=== PATIENT | female | born 1955 | race Caucasian/White ===

== ENCOUNTER 2020-07-25 17:42 | Emergency (ER) | payer OTHER, SELFPAY ==
[2020-07-25] VITALS (11 sets, daily range): BP systolic 112–165; BP diastolic 57–95; PULSE 84–112; RESP 15–24; TEMP 36.6; O2SAT 91–96; BMI 48.4
--- NOTE | 2020-07-25 18:38 | ECG_ITS ---
[facility] Test Date: 2020-07-25 Pat Name: Zakia Medellin Department: Room: Gender: Female Contract Consultant: : 1955 Requested By: Anthony Wilson Order Number: [id number] Tipton MD: Vargas Castro M.D. Measurements Intervals [place] Rate: 107 P: AL: QRS: -10 QRSD: 102 T: 6 QT: 333 QTc: 444 Interpretive Statements ATRIAL FIBRILLATION WITH RAPID VENTRICULAR RESPONSE INCOMPLETE RIGHT BUNDLE BRANCH BLOCK [90+ ms QRS DURATION, TERMINAL R IN V1/V2, 40+ ms S IN I/aVL/V4/V5/V6] NONSPECIFIC ST & T-WAVE ABNORMALITY No previous ECG available for comparison Electronically Signed On 07-26-2020 17:53:45 WELLNESS TRAINER by Vargas Castro M.D. [id number]
--- NOTE | 2020-07-25 18:38 | XRR_ITS ---
PROCEDURE INFORMATION: Exam: XR Chest, 1 View Exam date and time: 07/25/2020 6:40 PM Age: 64 years old Clinical indication: Dyspnea; Additional info: SOB TECHNIQUE: Imaging protocol: XR of the chest Views: 1 view. COMPARISON: No relevant prior studies available. FINDINGS: Lungs: Ill-defined peripheral interstitial opacities in both upper and lower lobes. Pleural space: No pleural effusion. No pneumothorax. Heart/Mediastinum: The cardiac silhouette is mildly enlarged. Mediastinal contours are unremarkable. Vasculature: Vascular calcifications in the aorta. Bones/joints: Unremarkable for age. XR/XR chest 1V portable [id number] IMPRESSION: 1. Ill-defined peripheral interstitial opacities in both upper and lower lobes. Imaging features can be seen with COVID-19 pneumonia, though are nonspecific and can occur with a variety of infectious and noninfectious processes. 2. Incidental/nonacute findings are listed in the report.
[2020-07-25] MEDS: ipratropium-albuterol 3 mL Neb INHALATION (18:58)
[2020-07-25 19:40] LABS: Basophils % 0.3 %; Hematocrit 41.2 % (37.0-47.0); Hemoglobin 13.1 g/dL (11.5-15.3); Lymphocytes # 1.2 10^3/uL (0.8-4.8); Lymphocytes % 16.6 %; Mean Corpuscular HGB Conc 31.8 g/dL (30.0-36.0); Mean Corpuscular Hemoglobin 27.6 pg (28.0-34.0); Mean Corpuscular Volume 86.7 fL (81-99); Monocytes # 0.5 10^3/uL (0.2-0.9); Monocytes % 6.7 %; Neutrophils # 5.68 10^3/uL (1.8-7.7); Neutrophils % 75.9 %; Nucleated Red Blood Cells % 0 %; Platelet Count 238 10^3/cmm (130-400); Red Blood Count 4.75 10^6/uL (4.1-5.3); Red Cell Distribution Width 11.9 % (12.1-15.1); White Blood Count 7.5 10^3/uL (4.0-10.0)
[2020-07-25 19:57] LABS: Lactic Sepsis W/Reflex 1.2 mmol/L (0.5-2.2)
[2020-07-25 20:06] LABS: Alanine Aminotransferase 24 U/L (0-33); Albumin Level 3.4 g/dL (3.5-5.2); Alkaline Phosphatase 96 IU/L (35-105); Anion Gap 15.9 (5-19); Aspartate Amino Transferase 23 U/L (0-32); Blood Urea Nitrogen 11 mg/dL (8-23); Calcium 8.7 mg/dL (8.5-10.5); Carbon Dioxide 24 mmol/L (22-29); Chloride 99 mmol/L (98-107); Glomerular Filtration Rate 124.6 mL/min (90-130); Glucose 166 mg/dL (65-115); NT Pro B Type Natriuretic Pept 474 pg/mL (0-125); Osmolality Calculated 283 mOsm/kg (285-295); Potassium 3.9 mmol/L (3.5-5.1); Sodium 135 mmol/L (136-145); Total Bilirubin 0.6 mg/dL (0.15-1.2); Total Protein 6.4 g/dL (6.6-8.7)
[2020-07-25] MEDS: sodium chloride 0.9% 500 ML 999 ML IV (20:10)
[2020-07-25] MEDS: LORazepam 1 mg Tablet PO (20:20)
--- NOTE | 2020-07-25 20:29 | W.ED.SOB ---
HPI - SOB/Dyspnea General: Chief Complaint: Shortness of Breath/Dyspnea Stated Complaint: sob/d/low o2 Time Seen by Provider: 07/25/20 17:49 Source: patient and family History of Present Illness: HPI Narrative: 64-year-old female post Covid guided quarantine on July 20, 2020 presents to the emergency room persistent shortness of breath and difficulty breathing. Per the daughter the patient is prone to getting allergic pneumonitis as well as pneumonia. The patient does report having a known history of lung issues including COPD. Patient has a known history of atrial fibrillation and cardiac issues she reports no recent chest pain or pressure reports intermittent episodes of A. fib that is normal for her she reports no recent swelling in her legs in which she was reporting no other associated symptoms. Pertinent past history: COPD Associated symptoms: Deny abdominal pain, chest pain, extremity pain, fever(s), nausea, palpitations or vomiting Related Data: Home oxygen amount: none Review of Systems General: Reports: 10 or more systems reviewed and unremarkable except in HPI and below Const: Denies: fever(s), chills, fatigue or malaise Eyes: Denies: change in vision or blurry vision Card: Reports: irregular heart rhythm; Denies: chest pain or palpitations Resp: Reports: dyspnea and productive cough; Denies: non-productive cough GI: Denies: abdominal pain, nausea or vomiting : Denies: flank pain Musc: Denies: extremity pain or extremity swelling Skin/Breast: Denies: rash or pruritus Neuro: Denies: headache(s) Psych: Denies: anxiety or depression Fritz/Lymph: Denies: easy bleeding All/Imm: Denies: urticaria, throat swelling or facial swelling Physical Exam Narrative: EXAM NARRATIVE: On assessment patient appears in no acute respiratory distress diminished breath sounds appreciated bilaterally with no wheezing crackles rales or rhonchi noted. Patient appears nontoxic Const: COMMON NORMALS: no acute distress and patient oriented x3 HENMT: COMMON NORMALS: normocephalic and atraumatic HEAD & SCALP: normocephalic and atraumatic Eye: COMMON NORMALS: Equal, round and reactive pupils present and EOMs intact bilaterally PUPIL: Yes Equal, round and reactive pupils present Neck/C-Spine: COMMON NORMALS: full ROM, supple and no JVD Lymph: LYMPHATIC: no lymphadenopathy noted Chest: COMMONS NORMALS: normal inspection of the chest Resp: COMMON NORMALS: normal respiratory effort, No retractions, No use of accessory muscles and clear to auscultation bilaterally EFFORT & INSPECTION: Yes able to speak in complete sentences and Yes symmetric chest movement AUSCULTATION: clear to auscultation bilaterally, wheezes and diminished lung sounds (Diminished breath sounds appreciated bilaterally with mild skin expiratory ) Cardio: COMMON NORMALS: no JVD, regular rate and regular rhythm RATE: regular rate RHYTHM: regular rhythm GI: COMMON NORMALS: Normal to inspection, nondistended, normoactive bowel sounds present, Soft to palpation and non-tender INSPECTION: Yes normal to inspection PALPATION: Yes Soft to palpation : COMMON NORMALS: Yes no CVA tenderness BLADDER/KIDNEY EXAM: Yes no CVA tenderness Back/Pelvis: COMMON NORMALS: no CVA tenderness Extremity: COMMON NORMALS: normal to inspection and full ROM Neuro: COMMON NORMALS: patient oriented x3, CN's II-XII intact bilaterally, moves all extremities and no focal motor deficits Psych: COMMON NORMALS: mental status grossly normal, Normal thought process present, cooperative and normal affect THOUGHT PROCESS: Normal thought process present Skin: COMMON NORMALS: no rashes or lesions noted GENERAL SKIN EXAM: no rashes or lesions noted Course Vital Signs: Vital signs: Vital Signs Temperature 97.9 F 07/25/20 17:44 Pulse Rate 99 07/25/20 20:34 Respiratory Rate 20 H 07/25/20 20:34 Blood Pressure 146/84 07/25/20 20:34 Pulse Oximetry 93 07/25/20 20:34 MDM - SOB/Dyspnea MDM Narrative: Medical decision making narrative: Due to patient's symptoms condition IV was established lab work imaging was obtained patient was found to be in chronic atrial fibrillation with a ventricular rate of 107. Will continue to follow. Patient has diminished breath sounds appreciated bilaterally IV steroids and nebs will be provided. Underlying concerns of pneumonia versus bronchiolitis versus recurrence of her Covid versus COPD exacerbation are prominent. Patient's scan does reveal bilateral interstitial lung markings consistent with continue with the Covid 19 lab work came back reassuring patient was started on additional medications including steroids and neb treatments for home due to patient's concerns will be started her on home O2 prior to subsequent discharge. Patient was advised to follow-up with primary care doctor in 3 to 5 days when she was instructed to return in the interim if any of her symptoms persist or worse. Lab Data: Labs: Lab Results 07/25/20 07/25/20 07/25/20 Range/Units 19:25 19:25 19:25 WBC 7.5 (4.0-10.0) 10^3/ uL RBC 4.75 (4.1-5.3) 10^6/u L Hgb 13.1 (11.5-15.3) g/dL Hct 41.2 (37.0-47.0) % MCV 86.7 (81-99) fL MCH 27.6 L (28.0-34.0) pg MCHC 31.8 (30.0-36.0) g/dL RDW 11.9 L (12.1-15.1) % Plt Count 238 (130-400) 10^3/c mm MPV 10.0 (7.4-10.4) fL Neut % (Auto) 75.9 % Lymph % (Auto) 16.6 % [place] % (Auto) 6.7 % Eos % (Auto) 0.0 % Baso % (Auto) 0.3 % Neut # (Auto) 5.68 (1.8-7.7) 10^3/u L Lymph # (Auto) 1.2 (0.8-4.8) 10^3/u L [place] # (Auto) 0.5 (0.2-0.9) 10^3/u L Eos # (Auto) 0.0 (0.0-0.8) 10^3/u L Baso # (Auto) 0.0 (0.0-0.1) 10^3/u L Nucleated RBC % (a uto) 0 % Nucleated RBCs # 0.0 /100WBC Sodium 135 L (136-145) mmol/L Potassium 3.9 (3.5-5.1) mmol/L Chloride 99 (98-107) mmol/L Carbon Dioxide 24 (22-29) mmol/L Anion Gap 15.9 (5-19) BUN 11 (8-23) mg/dL Creatinine 0.5 (0.5-0.9) mg/dL GFR Calculation 124.6 (90-130) mL/min Glucose 166 H (65-115) mg/dL Calculated Osmolal ity 283 L (285-295) mOsm/k g Lactic Acid 1.2 (0.5-2.2) mmol/L Calcium 8.7 (8.5-10.5) mg/dL Total Bilirubin 0.6 (0.15-1.2) mg/dL AST 23 (0-32) U/L ALT 24 (0-33) U/L Alkaline Phosphata se 96 (35-105) IU/L NT-Pro-B Natriuret Pep 474 H (0-125) pg/mL Total Protein 6.4 L (6.6-8.7) g/dL Albumin 3.4 L (3.5-5.2) g/dL Globulin 3.0 (1.3-4.6) g/dL Urine Color (Yellow) Urine Appearance (CLEAR) Urine pH (5-7) Ur Specific Gravit y (1.005-1.030) Urine Protein (Negative) Urine Glucose (UA) (Normal) Urine Ketones (Negative) Urine Blood (Negative) Urine Nitrate (Negative) Urine Bilirubin (Negative) Urine Urobilinogen (Negative) mg/dL Ur Leukocyte Yoanna ase (Negative) 07/25/20 Range/Units 19:50 WBC (4.0-10.0) 10^3/ uL RBC (4.1-5.3) 10^6/u L Hgb (11.5-15.3) g/dL Hct (37.0-47.0) % MCV (81-99) fL MCH (28.0-34.0) pg MCHC (30.0-36.0) g/dL RDW (12.1-15.1) % Plt Count (130-400) 10^3/c mm MPV (7.4-10.4) fL Neut % (Auto) % Lymph % (Auto) % [place] % (Auto) % Eos % (Auto) % Baso % (Auto) % Neut # (Auto) (1.8-7.7) 10^3/u L Lymph # (Auto) (0.8-4.8) 10^3/u L [place] # (Auto) (0.2-0.9) 10^3/u L Eos # (Auto) (0.0-0.8) 10^3/u L Baso # (Auto) (0.0-0.1) 10^3/u L Nucleated RBC % (a uto) % Nucleated RBCs # /100WBC Sodium (136-145) mmol/L Potassium (3.5-5.1) mmol/L Chloride (98-107) mmol/L Carbon Dioxide (22-29) mmol/L Anion Gap (5-19) BUN (8-23) mg/dL Creatinine (0.5-0.9) mg/dL GFR Calculation (90-130) mL/min Glucose (65-115) mg/dL Calculated Osmolal ity (285-295) mOsm/k g Lactic Acid (0.5-2.2) mmol/L Calcium (8.5-10.5) mg/dL Total Bilirubin (0.15-1.2) mg/dL AST (0-32) U/L ALT (0-33) U/L Alkaline Phosphata se (35-105) IU/L NT-Pro-B Natriuret Pep (0-125) pg/mL Total Protein (6.6-8.7) g/dL Albumin (3.5-5.2) g/dL Globulin (1.3-4.6) g/dL Urine Color Yellow (Yellow) Urine Appearance Clear (CLEAR) Urine pH 5 (5-7) Ur Specific Gravit y 1.015 (1.005-1.030) Urine Protein Neg (Negative) Urine Glucose (UA) Norm (Normal) Urine Ketones Negative (Negative) Urine Blood Neg (Negative) Urine Nitrate Negative (Negative) Urine Bilirubin Neg (Negative) Urine Urobilinogen Norm (Negative) mg/dL Ur Leukocyte Yoanna ase Negative (Negative) EKG Data^: EKG 1: Attestation: I personally reviewed and interpreted this EKG as follows: EKG Interpretation Date: 07/25/20 EKG interpretation time: 20:15 Prior EKG tracings: available for review Ischemic changes: non-specific ST-T wave changes Interpretation: Normal sinus rhythm rate of [address] segment alterations available regular rhythm andaxis noted Discharge Plan Discharge Patient Disposition: Home Clinical Impression: Acute bronchitis due to 2019-nCoV Condition: Stable Prescriptions: New Ventolin HFA 90 mcg/actuation HFA aerosol inhaler 2 inh inhalation Q4H PRN (Reason: shortness of breath or wheezing) Qty: 8.5 RF: 0 prednisone 20 mg tablet 20 mg PO BID 7 Days Qty: 14 RF: 0 Tessalon Perles 100 mg capsule 100 mg PO TID PRN (Reason: cough) Qty: 14 RF: 0 Discharge Orders: Discharge ED (Routine); Ordered 07/25/20 Ordered By: Anthony Wilson Referrals: Emi Griffin MD [Primary Care Provider] - 4-7 days Patient Instructions: Pneumonia - Viral Activity Restrictions/Additional Instructions: Please follow-up with your primary care doctor for 7 days take medication as prescribed and return to the ER if any of your symptoms persist or worsen. Coding Level of Care Code ED Color Print Inspector for Salg Fwd Exam Comprehensive
[2020-07-25 21:25] LABS: Add Urine Microscopic? NO
[2020-07-25 21:39] LABS: Bilirubin Urine Neg (Negative); Blood Urine Neg (Negative); Glucose Urine UA Norm (Normal); Ketones Urine Negative (Negative); Leukocyte Esterase Urine Negative (Negative); Nitrate Urine Negative (Negative); Protein Urine Neg (Negative); Specific Gravity, Urine 1.015 (1.005-1.030); Urine Appearance Clear (CLEAR); Urine Color Yellow (Yellow); Urobilinogen Urine Norm (Negative); pH Urine 5 (5-7)
--- NOTE | 2020-07-25 22:34 | PC.NURSE ---
attempt to d/c pt. Pt waiting for home 0xygen with [facility]
== END 2020-07-25 23:15 | disposition home or self-care (01) ==
PROVIDERS: Emergency Provider Emergency Medicine; PCP Family Medicine
DX: U07.1 COVID-19 (principal); J20.8 Acute bronchitis due to other specified organisms
CPT/HCPCS: 12345; 36415; 71045; 80053; 81003; 83605; 83880; 85025; 93005; 94640; 96374; 99283; 99284; J2930; J7040

== ENCOUNTER 2020-08-12 11:51 | Outpatient (CLI) | payer OTHER, SELFPAY ==
--- NOTE | 2020-08-12 11:56 | MM_ITS ---
WS: [id number] SCREENING DIGITAL MAMMOGRAM WITH CAD HISTORY: SCREENING COMPARISON: 03/05/2018 and 02/12/2015 Bilateral CC and MLO views submitted. Computer aided detection analyzed. Breast composition: The breasts are almost entirely fatty. No suspicious masses, microcalcifications or architectural distortion. MM/[id number] IMPRESSION: BI-RADS: 1-Negative FOLLOW UP: 1 Year Follow-up
== END 2020-08-12 11:52 | disposition home or self-care (01) ==
LOC: RADSHAW 11:55
PROVIDERS: PCP Family Medicine; Visit Provider Family Medicine
DX: Z12.31 Encounter for screening mammogram for malignant neoplasm of breast (principal)
CPT/HCPCS: 77067

== ENCOUNTER 2022-02-08 09:55 | Outpatient (CLI) | payer OTHER, SELFPAY ==
--- NOTE | 2022-02-08 10:04 | MM_ITS ---
WS: [id number] SCREENING DIGITAL BREAST TOMOSYNTHESIS MAMMOGRAM WITH CAD HISTORY: SCREENING COMPARISON: 08/12/2020 and 03/05/2018 Bilateral CC and MLO with tomosynthesis views submitted. Synthetic mammography reviewed. Computer aid ed detection analyzed. Breast composition: The breasts are almost entirely fatty. No suspicious masses, microcalcifications or architectural distortion. MM/[place] [id number] IMPRESSION: BI-RADS: 1-Negative FOLLOW UP: 1 Year Follow-up
== END 2022-02-08 09:56 | disposition home or self-care (01) ==
LOC: RAD 09:56
PROVIDERS: PCP Family Medicine; Visit Provider Family Medicine
DX: Z12.31 Encounter for screening mammogram for malignant neoplasm of breast (principal)
CPT/HCPCS: 77063; 77067

== ENCOUNTER 2023-01-10 22:39 | Emergency (ER) | payer MEDICARE, SELFPAY ==
[2023-01-10 22:47] VITALS: BP 121/70; PULSE 81; RESP 16; TEMP 36.4; O2SAT 97; BMI 41.9
--- NOTE | 2023-01-10 22:58 | ED_ITS ---
HPI - Neck Pain/Injury General: Chief Complaint: Neck Pain/Injury Stated Complaint: sharp pain back of the neck Time Seen by Provider: 01/10/23 22:55 History of Present Illness: 67-year-old female comes in today for complaints of left side point scalp tenderness and shocking sensation. Patient describes intermittent shocking episodes about every 4 minutes to the occipital insertion point of the scalp. Patient reports she did not notice tenderness until arriving to the ER and now she notes tenderness in that area. Patient moves neck without difficulty. Patient has clear speech. No facial drooping is noted. Patient has a history of atrial fib, and COPD. Patient reports no chest pain. Patient reports no injury. Patient has taken nothing for pain. Associated symptoms: Denies headache(s) or nausea Review of Systems General: Reports: 10 or more systems reviewed and unremarkable except in HPI and below Card: Denies: chest pain Resp: Denies: dyspnea GI: Denies: nausea or vomiting : Denies: difficulty voiding Musc: Reports: neck pain Skin/Breast: Denies: rash Neuro: Denies: headache(s) or Slurred speech present Psych: Denies: anxiety or depression Physical Exam Const: COMMON NORMALS: alert HENMT: COMMON NORMALS: atraumatic HEAD & SCALP: atraumatic and occipital foramen tenderness on the left MOUTH: moist mucous membranes abnormal Neck/C-Spine: COMMON NORMALS: full ROM CERVICAL SPINE: No Cervical spine tenderness Resp: COMMON NORMALS: normal respiratory effort and clear to auscultation bilaterally AUSCULTATION: clear to auscultation bilaterally Cardio: COMMON NORMALS: regular rate RATE: regular rate Back/Pelvis: COMMON NORMALS: thoracic and lumbar spine normal to inspection Extremity: COMMON NORMALS: full ROM Neuro: SENSORIUM/ORIENTATION: Yes alert Skin: COMMON NORMALS: turgor normal GENERAL SKIN EXAM: turgor normal Course Vital Signs: Vital signs: Vital Signs Temperature 97.6 F 01/10/23 22:47 Pulse Rate 98 01/10/23 23:48 Respiratory Rate 16 01/10/23 23:48 Blood Pressure 98/68 01/10/23 23:48 Pulse Oximetry 95 01/10/23 23:48 Oxygen Delivery Me thod Room Air 01/10/23 23:48 MDM - Neck Pain/Injury Medical Decision Making 67-year-old female comes in today with complaints of paroxysmal occipital pain. Patient reports as shocking and intermittent. Patient moves neck without difficulty. Patient reports the pain is intermittent and nothing she does will cause it to be aggravated. On exam patient has tenderness to the left occipital foramen. No cervical spine tenderness. Normal range of motion of cervical spine. No muscle tenderness of the back or trapezius muscles. Differential diagnosis includes herpes zoster infection, cervical radiculopathy, muscle spasm, anxiety, other infection or inflammation. CBC and CMP was unremarkable. CRP was slightly elevated at 12, ESR was 33. CT of the head and cervical spine noted no intracranial abnormality, there was facet arthropathy and minimal stenosis along C5-C6. No signs of infection or significant inflammation was noted. Reviewed exam with patient with recommendations for treatment and follow-up with primary care for further evaluation. Lab Data 01/10/23 23:43 01/10/23: Radiology Impressions Head CT 01/10/23 23:04 IMPRESSION: 1. Negative for intracranial hemorrhage or mass effect 2. Sphenoid sinus mucosal thickening. Cervical Spine CT 01/10/23 23:05 IMPRESSION: C5-C6 small broad-based disc bulge with mild spinal canal narrowing and bilateral foraminal narrowing with productive degenerative endplate changes. Laboratory Results WBC 8.3 10^3/uL (4.0-10.0) 01/10/23: RBC 4.83 10^6/uL (4.1-5.3) 01/10/23:43 Hgb 13.0 g/dL (11.5-15.3) 01/10/23: Hct 40.0 % (37.0-47.0) 01/10/23: MCV 82.8 fl (81-99) 01/10/23: MCH 26.9 pg (28.0-34.0) L 01/10/23: MCHC 32.5 g/dL (30.0-36.0) 01/10/23: RDW 12.9 % (12.1-15.1) 01/10/23: Plt Count 219 10^3/cmm (130-400) 01/10/23: MPV 10.7 fL (7.4-10.4) H 01/10/23: Neut % (Auto) 68.4 % 01/10/23 23:43 Lymph % (Auto) 22.7 % 01/10/23 23:43 Gaines % (Auto) 7.0 % 01/10/23 23:43 Eos % (Auto) 1.2 % 01/10/23 23:43 Baso % (Auto) 0.5 % 01/10/23 23:43 Neut # (Auto) 5.64 10^3/uL (1.8-7.7) 01/10/23 23:43 Lymph # (Auto) 1.9 10^3/uL (0.8-4.8) 01/10/23 23:43 Gaines # (Auto) 0.6 10^3/uL (0.2-0.9) 01/10/23 23:43 Eos # (Auto) 0.1 10^3/uL (0.0-0.8) 01/10/23 23:43 Baso # (Auto) 0.0 10^3/uL (0.0-0.1) 01/10/23 23:43 Nucleated RBC % (auto) 0 % 01/10/23 23:43 Nucleated RBCs # 0.0 /100WBC 01/10/23 23:43 ESR 33 mm/hr (0-15) H 01/10/23 23:43 Sodium 137 mmol/L (136-145) 01/10/23 23:43 Potassium 3.8 mmol/L (3.5-5.1) 01/10/23 23:43 Chloride 100 mmol/L (98-107) 01/10/23 23:43 Carbon Dioxide 25 mmol/L (22-29) 01/10/23 23:43 Anion Gap 15.8 (5-19) 01/10/23 23:43 BUN 10 mg/dL (8-23) 01/10/23 23:43 Creatinine 0.5 mg/dL (0.5-0.9) 01/10/23 23:43 GFR Calculation 123.4 mL/min (90-130) 01/10/23 23:43 Glucose 117 mg/dL (65-115) H 01/10/23 23:43 Calculated Osmolality 284 mOsm/kg (285-295) L 01/10/23 23:43 Calcium 10.1 mg/dL (8.5-10.5) 01/10/23 23:43 Total Bilirubin 0.5 mg/dL (0.15-1.2) 01/10/23 23:43 AST 23 U/L (0-32) 01/10/23 23:43 ALT 22 U/L (0-33) 01/10/23 23:43 Alkaline Phosphatase 88 U/L (35-105) 01/10/23 23:43 C-Reactive Protein 12.1 mg/L (0.0-4.9) H 01/10/23 23:43 Total Protein 7.6 g/dL (6.6-8.7) 01/10/23 23:43 Albumin 4.2 g/dL (3.5-5.2) 01/10/23 23:43 Globulin 3.4 g/dL (1.3-4.6) 01/10/23 23:43 EKG Data EKG 1: EKG interpretation date: 01/10/23 EKG interpretation time: 23:33 Prior EKG tracings: not available for review Interpretation: EKG shows a irregular rhythm at 97 bpm. Atrial fibrillation. No ST elevation or ectopy otherwise is noted. No prior exam was available for comparison at this time. Discharge Plan Discharge Patient Disposition: Home Clinical Impression: Occipital neuralgia of left side Condition: Stable Prescriptions: No Action Ventolin HFA 90 mcg/actuation HFA aerosol inhaler 2 inh inhalation Q4H PRN (Reason: shortness of breath or wheezing) Qty: 8.5 0RF Tessalon Perles 100 mg capsule 100 mg PO TID PRN (Reason: cough) Qty: 14 0RF Discharge Orders: Discharge ED (Routine); Ordered 01/11/23 Ordered By: Teja Catalan Referrals: Emi Griffin MD [Primary Care Provider] - Discharge Diet: Usual diet Discharge Activity: Increase activity as tolerated Patient Instructions: Cervical Radiculopathy (ED) Activity Restrictions/Additional Instructions: Activity as tolerated. Drink plenty of water. Use acetaminophen and/or ibuprofen for pain and discomfort. Follow-up with primary care for further instructions. Return to ER for new concerns or worsening symptoms such as slurring of speech, facial drooping, weakness, high fever, or shortness of breath. Coding Level of Care Code ED [employer] Communications Sergeant for Nav Pierce
--- NOTE | 2023-01-10 23:04 | CTR_ITS ---
PROCEDURE INFORMATION: Exam: CT Head Without Contrast Exam date and time: 01/10/2023 11:16 PM Age: 67 years old Clinical indication: Pain; Headache not specified; Additional info: Posterior headache TECHNIQUE: Imaging protocol: Computed tomography of the head without contrast. Radiation optimization: All CT scans at this facility use at least one of these dose optimization techniques: automated exposure control; mA and/or kV adjustment per patient size (includes targeted exams where dose is matched to clinical indication); or iterative reconstruction. REPORTING DATA: Count of CT and Cardiac NM exams in prior 12 months: This patient has received 0 known CTs and 0 known cardiac nuclear medicine studies in the 12 months prior to the current study. COMPARISON: No relevant prior studies available. RADIATION DOSE METRICS: Total DLP (mGy-cm): 1221.08 FINDINGS: Brain: Normal. No hemorrhage. Unremarkable white matter. No mass effect. Cerebral ventricles: No ventriculomegaly. Paranasal sinuses: Sphenoid sinus mucosal thickening. Mastoid air cells: Visualized mastoid air cells are well aerated. Bones/joints: Unremarkable. No acute fracture. Soft tissues: Unremarkable. CT/CT head wo con* [id number] IMPRESSION: 1. Negative for intracranial hemorrhage or mass effect 2. Sphenoid sinus mucosal thickening.
--- NOTE | 2023-01-10 23:05 | CTR_ITS ---
PROCEDURE INFORMATION: Exam: CT Cervical Spine Without Contrast Exam date and time: 01/10/2023 11:19 PM Age: 67 years old Clinical indication: Neck pain TECHNIQUE: Imaging protocol: Computed tomography of the cervical spine without contrast. Radiation optimization: All CT scans at this facility use at least one of these dose optimization techniques: automated exposure control; mA and/or kV adjustment per patient size (includes targeted exams where dose is matched to clinical indication); or iterative reconstruction. REPORTING DATA: Count of CT and Cardiac NM exams in prior 12 months: This patient has received 0 known CTs and 0 known cardiac nuclear medicine studies in the 12 months prior to the current study. COMPARISON: CT head wo con* [id number] 01/10/2023 11:16 PM RADIATION DOSE METRICS: Total DLP (mGy-cm): 583.27 FINDINGS: Bones/joints: See C5-C6 finding. C2-C3: No significant disc bulge or herniation. No severe spinal canal stenosis. No significant neural foraminal narrowing. C3-C4: No significant disc bulge or herniation. No severe spinal canal stenosis. No significant neural foraminal narrowing. C4-C5: No significant disc bulge or herniation. No severe spinal canal stenosis. No significant neural foraminal narrowing. C5-C6: C5-C6 small broad-based disc bulge with mild spinal canal narrowing and bilateral foraminal narrowing with productive degenerative endplate changes. C6-C7: No significant disc bulge or herniation. No severe spinal canal stenosis. No significant neural foraminal narrowing. C7-T1: No significant disc bulge or herniation. No severe spinal canal stenosis. No significant neural foraminal narrowing. Lungs: Lung apices are normal. Soft tissues: Unremarkable. CT/CT cervical spin wo con* [id number] IMPRESSION: C5-C6 small broad-based disc bulge with mild spinal canal narrowing and bilateral foraminal narrowing with productive degenerative endplate changes.
--- NOTE | 2023-01-10 23:14 | ECG_ITS ---
[facility] Test Date: 2023-01-10 Pat Name: Zakia Medellin Department: Room: Gender: Female Intelligence Manager: : 1955 Requested By: Teja Olivier Order Number: [id number] Danuta MD: Vargas Castro M.D. Measurements Intervals Staples Rate: 97 P: 0 NM: 0 QRS: -9 QRSD: 119 T: 19 QT: 349 QTc: 444 Interpretive Statements ATRIAL FIBRILLATION MODERATE INTRAVENTRICULAR CONDUCTION DELAY [110+ ms QRS DURATION] MINIMAL ST DEPRESSION [0.025+ mV ST DEPRESSION] Compared to ECG 07/25/2020 20:10:16 Intraventricular conduction delay now present ST (T wave) deviation now present Incomplete right bundle-branch block no longer present T-wave abnormality no longer present Electronically Signed On 01-11-2023 9:46:48 CDT by Vargas Castro M.D. [id number]
[2023-01-10 23:48] VITALS: BP 98/68; PULSE 98; RESP 16; O2SAT 95
[2023-01-10 23:53] LABS: Erythrocyte Sedimentation Rate 33 mm/hr (0-15)
[2023-01-11 00:02] LABS: Alanine Aminotransferase 22 U/L (0-33); Albumin Level 4.2 g/dL (3.5-5.2); Alkaline Phosphatase 88 U/L (35-105); Anion Gap 15.8 (5-19); Aspartate Amino Transferase 23 U/L (0-32); Basophils % 0.5 %; Blood Urea Nitrogen 10 mg/dL (8-23); C Reactive Protein 12.1 mg/L (0.0-4.9); Calcium 10.1 mg/dL (8.5-10.5); Carbon Dioxide 25 mmol/L (22-29); Chloride 100 mmol/L (98-107); Eosinophils # 0.1 10^3/uL (0.0-0.8); Eosinophils % 1.2 %; Globulin 3.4 g/dL (1.3-4.6); Glomerular Filtration Rate 123.4 mL/min (90-130); Glucose 117 mg/dL (65-115); Lymphocytes # 1.9 10^3/uL (0.8-4.8); Lymphocytes % 22.7 %; Mean Corpuscular HGB Conc 32.5 g/dL (30.0-36.0); Mean Corpuscular Hemoglobin 26.9 pg (28.0-34.0); Mean Corpuscular Volume 82.8 fl (81-99); Mean Platelet Volume 10.7 fL (7.4-10.4); Monocytes # 0.6 10^3/uL (0.2-0.9); Neutrophils # 5.64 10^3/uL (1.8-7.7); Neutrophils % 68.4 %; Nucleated Red Blood Cells % 0 %; Osmolality Calculated 284 mOsm/kg (285-295); Platelet Count 219 10^3/cmm (130-400); Potassium 3.8 mmol/L (3.5-5.1); Red Blood Count 4.83 10^6/uL (4.1-5.3); Red Cell Distribution Width 12.9 % (12.1-15.1); Sodium 137 mmol/L (136-145); Total Bilirubin 0.5 mg/dL (0.15-1.2); Total Protein 7.6 g/dL (6.6-8.7); White Blood Count 8.3 10^3/uL (4.0-10.0)
[2023-01-11 00:46] VITALS: BP 100/64; PULSE 93; RESP 23; O2SAT 95
== END 2023-01-11 00:51 | disposition home or self-care (01) ==
PROVIDERS: Emergency Provider Nurse Practitioner Family; PCP Family Medicine
DX: M54.81 Occipital neuralgia (principal); I48.91 Unspecified atrial fibrillation
CPT/HCPCS: 70450; 72125; 80053; 85025; 85651; 86140; 93005; 99285

== ENCOUNTER → 2023-07-25 08:59 | Outpatient (BNVA) | payer MEDICARE, SELFPAY | PROVIDERS: PCP Family Medicine; Referring Provider Family Medicine; Visit Provider Surgery | DX: K64.9 Unspecified hemorrhoids | CPT/HCPCS: 99204 ==

== ENCOUNTER 2023-07-28 11:07 | Outpatient (CLI) | payer MEDICARE, SELFPAY ==
--- NOTE | 2023-07-28 11:11 | MM_ITS ---
WS: [id number] BILATERAL 3D TOMOSYNTHESIS DIGITAL SCREENING MAMMOGRAPHY WITH CAD CLINICAL INFORMATION: SCREENING HISTORY: Screening mammogram. No current complaints. COMPARISON: None. TECHNIQUE: Bilateral CC and MLO views. FINDINGS: Scattered fibroglandular densities bilaterally. No suspicious focal mass, asymmetry, calcifications, or architectural distortion. No evidence of malignancy. Incidental punctate calcification LEFT breast . IMPRESSION: MM/[place] [id number] BI-RADS: 2-Benign FOLLOW UP: 1 Year Follow-up Recommend return to annual screening mammography.
== END 2023-07-28 11:08 | disposition home or self-care (01) ==
LOC: RAD 11:07
PROVIDERS: PCP Family Medicine; Visit Provider Family Medicine
DX: Z12.31 Encounter for screening mammogram for malignant neoplasm of breast (principal)
CPT/HCPCS: 77063; 77067

== ENCOUNTER 2023-08-09 07:47 | Day surgery (SDC) | payer MEDICARE, SELFPAY ==
[2023-08-09 08:03] VITALS: BP 135/74; PULSE 122; RESP 18; TEMP 36.1; O2SAT 95; BMI 43.0
[2023-08-09] MEDS: sodium chloride 0.9% 1,000 ML 30 ML IV (08:13)
[2023-08-09 08:20] LABS: Glucose Point of Care 185 mg/dL (70-110)
--- NOTE | 2023-08-09 08:31 | P.ANESASSM_ITS ---
Pre-Anesthetic Assessment Height/Weight: Height 1.68 m Weight 121.109 kg Temp Pulse Resp BP Pulse Ox O2 Del Method 97 F L 122 H 18 135/74 95 Room Air 08/09/23 08:03 08/09/23 08:03 08/09/23 08:03 08/09/23 08:03 08/09/23 08:03 08/09/23 08:03 Operation Date: 08/09/23 08:30 Proposed Procedures p 89542 colonoscopy g0121 screen colon a risk K64.9(Not Applicable) - Jamil Holguin DO Familial anesthetic complications: Slow to wake up Was Beta Greg taken within 24 hours: N/A Was Clonidine taken within 24 hours: N/A Last intake: Intake Last Liquid Date 08/08/23 Last Liquid Time 23:15 Last Solid Date 08/07/23 Last Solid Time 09:30 Social No alcohol and No tobacco Exam alert, oriented x 3, clear to auscultation bilaterally and regular rate & rhythm Airway Mallampati: Class III Dentition: full Pulmonary Asthma denies COPD CV/HEM Atrial Fibrillation Metabolic Diabetes Mellitus, Morbid Obesity and Thyroid Disease Anesthetic Plan ASA status: 3 Anesthesia: MAC Risk of > 500 ml blood loss (7ml/kg in children): No Medications/Allergies Home Medications Medication Instructions Recorded Confirmed Last Taken Type albuterol sulfate 90 mcg/actuation 2 inh inhalation Q4H PRN shortness 07/25/20 08/07/23 Unknown Rx aerosol inhaler (Ventolin HFA) of breath or wheezing #8.5 grams digoxin 250 mcg (0.25 mg) tablet 0.25 mg PO DAILY 07/25/23 08/07/23 08/09/23 07:00 History gabapentin 300 mg capsule 300 mg PO BID 07/25/23 08/07/23 08/08/23 History insulin glargine 100 unit/mL 20 unit SUBCUT DAILY 07/25/23 08/09/23 08/08/23 History subcutaneous solution (Lantus U-100 Insulin) levothyroxine 25 mcg tablet 25 mcg PO DAILY 07/25/23 08/07/23 08/09/23 07:00 History (Synthroid) losartan 25 mg tablet 25 mg PO DAILY 07/25/23 08/07/23 08/08/23 History metformin 500 mg tablet,extended 500 mg PO QPM 07/25/23 08/07/2308/07/24 Hi story release 24 hr hydrocortisone 2.5 % topical cream 1 applic TX QID PRN hemorrhoids 10 07/26/23 08/07/23 08/07/23 Rx with perineal applicator days #30 grams (Anusol-HC) Allergies Allergy/AdvReac Type Severity Reaction Status Date / Time nickel Allergy Mild ADR-Agitate Verified 08/07/23 12:27 d adhesive Allergy ALGY-Rash Verified 08/07/23 12:27 Penicillins Allergy ALGY-Hives Verified 08/07/23 12:27 povidone-iodine Allergy ALGY-Rash Verified 08/07/23 12:27 [From Betadine] soap [From Betadine] Allergy ALGY-Rash Verified 08/07/23 12:27 Sulfa (Sulfonamide Allergy Unknown Verified 08/07/23 12:27 Antibiotics) Current Medications Generic Name Dose Route Start Last Admin Trade Name Freq PRN Reason Stop Dose Admin Sodium Chloride 1,000 mls @ 30 mls/hr 08/09/23 08:00 08/09/23 08:13 Sodium Chloride 0.9% IV 08/10/23 07:59 30 mls/hr .Q24H TAYLOR Administration PFSH Anesthesia Medical History (Updated 07/25/23 @ 10:38 by Jamil Holguin DO) Afib Normal hysteroscopy Data Anesthesia Cardiac Studies: No Data to Display
--- NOTE | 2023-08-09 08:56 | W.PM.OPSUD ---
Surgery/Procedure H&P Update DATE OF PROCEDURE: August 09, 2023 DATE H&P PERFORMED: 07/25/23 H&P UPDATE INFORMATION: I have reviewed H&P completed within last 30 days, I have examined patient prior to procedure and No changes to prior documentation PLANNED PROCEDURE: Operation Date: 08/09/23 08:30 Proposed Procedures p 64881 colonoscopy g0121 screen colon a risk K64.9(Not Applicable) - Jamil Holguin, DO
[2023-08-09 09:27] VITALS: BP 123/73; PULSE 100; RESP 18; O2SAT 93
[2023-08-09 09:35] VITALS: BP 112/59; PULSE 104; RESP 18; O2SAT 94
[2023-08-09 09:40] VITALS: BP 137/73; PULSE 101; RESP 18; O2SAT 95
--- NOTE | 2023-08-09 10:25 | ANE.PACU2 ---
Inpatient post-anesthesia follow up: Airway intact: Yes Vital signs: Temperature 97 F Pulse Rate 101 Respiratory Rate 18 Blood Pressure 137/73 Pulse Oximetry 95 Oxygen Delivery Me thod Room Air Oxygen Flow Rate Fraction of Inspir ed Oxygen Hydration adequate: Yes Nausea and vomiting: No Pain level: 1 Mental status: Baseline
== END 2023-08-09 10:12 | disposition home or self-care (01) ==
PROVIDERS: PCP Family Medicine; Visit Provider Surgery
PROC: 0DJD8ZZ Inspection of Lower Intestinal Tract, Via Natural or Artificial Opening Endoscopic (ICD-10-PCS; CPT 45378; principal; 2023-08-09 08:30)
DX: Z12.11 Encounter for screening for malignant neoplasm of colon (principal); D12.2 Benign neoplasm of ascending colon; D12.0 Benign neoplasm of cecum; Z79.84 Long term (current) use of oral hypoglycemic drugs; I48.91 Unspecified atrial fibrillation; K64.9 Unspecified hemorrhoids; E11.9 Type 2 diabetes mellitus without complications; E66.01 Morbid (severe) obesity due to excess calories; Z68.41 Body mass index [BMI] 40.0-44.9, adult; Z79.4 Long term (current) use of insulin
CPT/HCPCS: 36416; 45385; 82962; 88305; J2704; J7030

== ENCOUNTER → 2023-08-22 09:21 | Outpatient (BNVA) | payer MEDICARE, SELFPAY | PROVIDERS: PCP Family Medicine; Visit Provider Surgery | DX: Z09 Encounter for follow-up examination after completed treatment for conditions other than malignant neoplasm (principal); K64.9 Unspecified hemorrhoids; D37.4 Neoplasm of uncertain behavior of colon | CPT/HCPCS: 99214 ==

== ENCOUNTER 2024-01-02 11:38 | Outpatient (CLI) | payer MEDICARE, SELFPAY ==
--- NOTE | 2024-01-02 12:07 | XRR_ITS ---
PROCEDURE INFORMATION: Exam: XR Lumbosacral Spine Exam date and time: 01/02/2024 12:16 PM Age: 68 years old Clinical indication: Low back pain TECHNIQUE: Imaging protocol: Radiologic exam of the lumbosacral spine. Views: 4 or 5 views. COMPARISON: CR XR hip BI 3-4V wo/w pel [id number] 05/29/2024 12:16 FINDINGS: Bones/joints: There is normal anatomic alignment of the lumbosacral spine. No fracture identified. There is multilevel chronic degenerative facet arthropathy throughout the lower lumbar spine. No significant intervertebral disc space narrowing. Soft tissues: Unremarkable. Intraperitoneal space: There are surgical clips in the right upper quadrant. XR/XR lumbar spine min 4V [id number] IMPRESSION: Chronic degenerative facet arthropathy of the lower lumbar spine. No evidence of a lumbosacral fracture
--- NOTE | 2024-01-02 12:08 | XRR_ITS ---
PROCEDURE INFORMATION: Exam: XR Bilateral Hips Exam date and time: 01/02/2024 12:16 PM Age: 68 years old Clinical indication: Hip pain; Bilateral; Additional info: Bilat hip pain, changed to bilat TECHNIQUE: Imaging protocol: Radiologic exam of the bilateral hips. Views: 2 views of hips with pelvis when performed. COMPARISON: CR XR lumbar spine min 4V [id number] 05/29/2024 12:16 FINDINGS: Bones/joints: There is mild bilateral hip joint space narrowing. There are small/subtle acetabular osteophytes superiorly. No evidence of a hip fracture or dislocation. The pubic rami and visualized portions of the sacrum and iliac bones are unremarkable. Soft tissues: Unremarkable. XR/XR hip BI 3-4V wo/w pel [id number] IMPRESSION: Mild chronic osteoarthritis of both hips
== END 2024-01-02 11:39 | disposition home or self-care (01) ==
PROVIDERS: PCP Family Medicine; Visit Provider Family Medicine
DX: M47.896 Other spondylosis, lumbar region (principal); M25.78 Osteophyte, vertebrae
CPT/HCPCS: 72110; 73522

== ENCOUNTER 2024-04-04 09:34 | Outpatient (RCR) | payer MEDICARE, SELFPAY | END 2024-04-22 23:59 | disposition home or self-care (01) | LOC: SPT 09:34 | PROVIDERS: PCP Family Medicine; Visit Provider Family Medicine | DX: M25.551 Pain in right hip (principal); M25.552 Pain in left hip | CPT/HCPCS: 97110; 97161 ==

== ENCOUNTER 2024-04-23 06:30 | Outpatient (RCR) | payer MEDICARE, SELFPAY | END 2024-05-10 23:59 | disposition home or self-care (01) | LOC: SPT 06:30 | PROVIDERS: PCP Family Medicine; Visit Provider Family Medicine | DX: M25.551 Pain in right hip (principal); M25.552 Pain in left hip | CPT/HCPCS: 97110 ==

== ENCOUNTER 2024-06-24 16:18 | Outpatient (CLI) | payer MEDICARE, SELFPAY ==
--- NOTE | 2024-06-24 16:22 | CT_ITS ---
WS: [id number] CT ABDOMEN WITHOUT CONTRAST HISTORY: RUQ MASS, RIGHT upper quadrant swelling for 2 months. Contiguous single phase 5 mm axial imaging performed to the abdomen. Oral contrast has not been provi ded. Coronal and sagittal reformats are submitted. All CT scans at [facility] use at least on e of these dose optimization techniques: automated exposure control; mA and/or kV adjustment per philomena ent size (includes targeted exams where dose is matched to clinical indication); or iterative reconst ruction. IV CONTRAST: None Oral contrast: No DLP: 624.35 mGy.cm COMPARISON: 11/10/2010 Lower thorax: Lung bases are clear. Mild cardiomegaly which has progressed since 2010. Moderate size hiatal hernia. Liver/biliary system: Moderate hepatomegaly. There is also at least moderate hepatic steatosis. No bi le duct dilatation appreciated on this unenhanced exam. Lack of IV contrast decreases sensitivity for hepatic masses. Gallbladder: Prior cholecystectomy. Pancreas: Normal size pancreas and pancreatic duct. No adjacent inflammation. Spleen: Normal size spleen. No mass or infarct. Central granuloma. Adrenal glands: Normal. Right kidney: Minimal perinephric stranding is new since the prior study. There is no obstruction. Th is may be a chronic finding. Left kidney: Minimal perinephric stranding is new since the prior study. No obstruction. Aorta: Normal. Calcifications are noted within the ovarian gonadal venous complex in the mid abdomen. Lymphadenopathy: None. Free fluid: None. GI tract: As visualized within the abdomen normal. Abdominal wall: Unremarkable abdominal wall. No hernia. Visualized osseous structures: Unremarkable. CT/CT abdomen wo con [id number] IMPRESSION: 1. Moderate hepatomegaly and hepatic steatosis. Liver has increased in size si nce 2010. 2. Lack of IV contrast decreases sensitivity for evaluating hepatic masses. 3. Prior cholecystectomy. 4. Moderate hiatal hernia. 5. Mild cardiomegaly which is new since 11/10/2010.
== END 2024-06-24 16:19 | disposition home or self-care (01) ==
LOC: RAD 16:20
PROVIDERS: PCP Family Medicine; Visit Provider Family Medicine
DX: R16.0 Hepatomegaly, not elsewhere classified (principal); K44.9 Diaphragmatic hernia without obstruction or gangrene; K76.0 Fatty (change of) liver, not elsewhere classified; Z90.49 Acquired absence of other specified parts of digestive tract
CPT/HCPCS: 74150

== ENCOUNTER 2024-07-16 12:51 | Outpatient (CLI) | payer MEDICARE, SELFPAY ==
--- NOTE | 2024-07-16 13:01 | MR_ITS ---
WS: [id number] MRI LUMBAR SPINE NONCONTRAST TECHNIQUE: Sagittal T1, T2 and STIR imaging. Axial T1 and T2 imaging. CLINICAL INFORMATION: BACK PAIN COMPARISON: None. FINDINGS: Mild lumbar curve. Prominent intraosseous hemangioma L1 vertebral body. No acute compression fracture s. Small central protrusion in the cervical spine geological e logger imaging at C5-C6 with mild central canal sten osis. L1-L2: Mild annular bulging. Slight narrowing of the subarticular recess bilaterally. Mild facet arth ropathy. Foramen are patent. L2-L3: Disc bulging with moderate to severe central canal stenosis. Facet arthropathy and ligamentum flavum hypertrophy. Moderate RIGHT foraminal narrowing. LEFT paracentral herniated disc material extending from the L2-L3 to L3-4 interspace. This impinges t he LEFT ventral thecal sac with moderate to severe central canal stenosis. L3-L4: Moderate to severe central canal stenosis L3-4 with impingement of the LEFT subarticular reces s. Moderate facet arthropathy. Small LEFT foraminal protrusion with mild LEFT foraminal narrowing. L4-L5: Grade 1 anterolisthesis. Mild disc bulging with moderate central canal stenosis. Impingement o n the traversing L5 nerve roots bilaterally. Mild LEFT greater than RIGHT foraminal narrowing. Modera te facet arthropathy. L5-S1: Mild annular bulging. Slight effacement of the ventral thecal sac. Mild facet arthropathy. For amen are patent. 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 Visualized pelvic bony structures: Normal. Paravertebral soft tissues: Normal. MR/MR lumbar spine wo con* [id number] IMPRESSION: 1. Mild lumbar curve. No acute compression. 2. Herniated LEFT paracentral disc material posterior to the L3 vertebral body extending from the L2-L3 to the L3-L4 interspace. This may originate from the L3-4 interspace. This results in moderate to severe central canal stenosis post erior to the L3 vertebral body. Moderate to severe central canal stenosis at L2 -3 and L3-4 interspace levels. Impingement on the LEFT subarticular recess. 3. Moderate RIGHT L2-3 foraminal narrowing. 4. Small LEFT foraminal protrusion with mild LEFT L3-4 foraminal narrowing. 5. Moderate central canal stenosis L4-5 with impingement of traversing L5 nerv e roots bilaterally. Grade 1 anterolisthesis. Mild LEFT foraminal narrowing at this level. 6. Small central protrusion in the cervical spine geological e logger imaging at C5-C6 with mild central canal stenosis.
== END 2024-07-16 12:52 | disposition home or self-care (01) ==
PROVIDERS: PCP Family Medicine; Visit Provider Family Medicine
DX: M50.20 Other cervical disc displacement, unspecified cervical region (principal); M51.360 Other intervertebral disc degeneration, lumbar region with discogenic back pain only; M48.061 Spinal stenosis, lumbar region without neurogenic claudication; M54.16 Radiculopathy, lumbar region; M47.896 Other spondylosis, lumbar region; M43.16 Spondylolisthesis, lumbar region; G96.191 Perineural cyst
CPT/HCPCS: 72148

== ENCOUNTER → 2024-08-28 12:43 | Outpatient (BNVA) | payer MEDICARE, SELFPAY | PROVIDERS: PCP Family Medicine; Referring Provider Family Medicine; Visit Provider Nurse Practitioner Family | DX: M47.816 Spondylosis without myelopathy or radiculopathy, lumbar region (principal); M54.50 Low back pain, unspecified; M79.604 Pain in right leg; M79.605 Pain in left leg | CPT/HCPCS: 99214 ==

== ENCOUNTER → 2024-08-29 08:16 | Outpatient (BNVA) | payer MEDICARE, SELFPAY | PROVIDERS: PCP Family Medicine; Visit Provider Orthopaedic Surgery | DX: M54.50 Low back pain, unspecified (principal); M79.605 Pain in left leg; M79.604 Pain in right leg | CPT/HCPCS: 72110; 99204 ==

== ENCOUNTER → 2024-09-04 10:21 | Outpatient (BNVA) | payer MEDICARE, SELFPAY | PROVIDERS: PCP Family Medicine; Visit Provider Nurse Practitioner Family | DX: M79.18 Myalgia, other site (principal); M54.50 Low back pain, unspecified; M79.604 Pain in right leg; M79.605 Pain in left leg; M47.816 Spondylosis without myelopathy or radiculopathy, lumbar region | CPT/HCPCS: 20553; 99214; J1010; J3490 ==

== ENCOUNTER 2024-09-12 13:31 | Outpatient (CLI) | payer MEDICARE, SELFPAY ==
--- NOTE | 2024-09-12 13:59 | MM_ITS ---
WS: [id number] VIEWS: MLO and CC views both breasts. 3D digital tomosynthesis is also included in this exam. Comparison made with prior exam of 02/12/2015, 03/05/2018, 08/12/2020, 02/08/2022, 07/28/2023.. Findings: The breasts are almost entirely fatty. No sign of suspicious mass, tumor calcification or architectural distortion. MM/MM scr BI tomosynthesis [id number] Impression: BI-RADS: 2 - Benign. FOLLOW-UP: 1 Year Follow-up This mammogram was also analyzed by the Computer Aided Detection System [employer].
== END 2024-09-12 13:32 | disposition home or self-care (01) ==
PROVIDERS: PCP Family Medicine; Visit Provider Family Medicine
DX: Z12.31 Encounter for screening mammogram for malignant neoplasm of breast (principal); R92.313 Mammographic fatty tissue density, bilateral breasts
CPT/HCPCS: 77063; 77067

== ENCOUNTER → 2024-09-18 13:34 | Outpatient (BNVA) | payer MEDICARE, SELFPAY | PROVIDERS: PCP Family Medicine; Visit Provider Anesthesiology Pain Medicine | DX: M47.816 Spondylosis without myelopathy or radiculopathy, lumbar region (principal); M54.50 Low back pain, unspecified; M79.604 Pain in right leg; M79.605 Pain in left leg | CPT/HCPCS: 64493; 64494; 64495; J3490 ==

== ENCOUNTER → 2024-09-30 14:52 | Outpatient (BNVA) | payer MEDICARE, SELFPAY | PROVIDERS: PCP Family Medicine; Visit Provider Anesthesiology Pain Medicine | DX: M25.551 Pain in right hip (principal); M25.552 Pain in left hip; M54.50 Low back pain, unspecified; M79.604 Pain in right leg; M79.605 Pain in left leg; M47.816 Spondylosis without myelopathy or radiculopathy, lumbar region | CPT/HCPCS: 73502; 73522; 99214 ==

== ENCOUNTER → 2024-10-15 14:56 | Outpatient (BNVA) | payer MEDICARE, SELFPAY | PROVIDERS: PCP Family Medicine; Visit Provider Anesthesiology Pain Medicine | DX: M47.816 Spondylosis without myelopathy or radiculopathy, lumbar region (principal); M54.50 Low back pain, unspecified; M79.604 Pain in right leg; M79.605 Pain in left leg | CPT/HCPCS: 64493; 64494; 64495; J3490; J9999 ==

== ENCOUNTER → 2024-10-24 11:11 | Outpatient (BNVA) | payer MEDICARE, SELFPAY | PROVIDERS: PCP Family Medicine; Visit Provider Nurse Practitioner Family | DX: M54.50 Low back pain, unspecified (principal); M79.604 Pain in right leg; M79.605 Pain in left leg; M47.816 Spondylosis without myelopathy or radiculopathy, lumbar region | CPT/HCPCS: 99213 ==

== ENCOUNTER → 2024-10-30 09:39 | Outpatient (BNVA) | payer MEDICARE, SELFPAY | PROVIDERS: PCP Family Medicine; Visit Provider Anesthesiology Pain Medicine | DX: M47.816 Spondylosis without myelopathy or radiculopathy, lumbar region (principal); M47.26 Other spondylosis with radiculopathy, lumbar region; M54.50 Low back pain, unspecified; M79.604 Pain in right leg; M79.605 Pain in left leg | CPT/HCPCS: 64635; 64636; J1010; J9999 ==

== ENCOUNTER → 2024-11-13 08:59 | Outpatient (BNVA) | payer MEDICARE, SELFPAY | PROVIDERS: PCP Family Medicine; Visit Provider Nurse Practitioner Family | DX: M54.50 Low back pain, unspecified (principal); M79.604 Pain in right leg; M79.605 Pain in left leg; M47.816 Spondylosis without myelopathy or radiculopathy, lumbar region | CPT/HCPCS: 99213 ==

== ENCOUNTER → 2024-11-20 08:14 | Outpatient (BNVA) | payer MEDICARE, SELFPAY | PROVIDERS: PCP Family Medicine; Visit Provider Anesthesiology Pain Medicine | DX: M47.816 Spondylosis without myelopathy or radiculopathy, lumbar region (principal); M54.50 Low back pain, unspecified; M79.604 Pain in right leg; M79.605 Pain in left leg | CPT/HCPCS: 64635; 64636; J9999 ==

== ENCOUNTER → 2024-12-03 11:14 | Outpatient (BNVA) | payer MEDICARE, SELFPAY | PROVIDERS: PCP Family Medicine; Visit Provider Nurse Practitioner Family | DX: M54.50 Low back pain, unspecified (principal); M79.604 Pain in right leg; M79.605 Pain in left leg; M47.816 Spondylosis without myelopathy or radiculopathy, lumbar region | CPT/HCPCS: 99214 ==

== ENCOUNTER → 2024-12-05 12:32 | Outpatient (BNVA) | payer MEDICARE, SELFPAY | PROVIDERS: PCP Family Medicine; Visit Provider Orthopaedic Surgery | DX: M54.50 Low back pain, unspecified (principal); M79.604 Pain in right leg; M79.605 Pain in left leg | CPT/HCPCS: 99213 ==

== ENCOUNTER → 2025-02-03 12:57 | Outpatient (BNVA) | payer MEDICARE, SELFPAY | PROVIDERS: PCP Family Medicine; Visit Provider Nurse Practitioner Family | DX: M25.552 Pain in left hip (principal); M47.816 Spondylosis without myelopathy or radiculopathy, lumbar region; M25.551 Pain in right hip; M54.50 Low back pain, unspecified; M79.604 Pain in right leg; M79.605 Pain in left leg | CPT/HCPCS: 20610; 73521; 99214; J1010; J3490 ==

== ENCOUNTER → 2025-03-31 11:26 | Outpatient (BNVA) | payer MEDICARE, SELFPAY | PROVIDERS: PCP Family Medicine; Visit Provider Nurse Practitioner Family | DX: M54.50 Low back pain, unspecified (principal); M47.816 Spondylosis without myelopathy or radiculopathy, lumbar region; M79.604 Pain in right leg; M25.552 Pain in left hip | CPT/HCPCS: 99214 ==

== ENCOUNTER → 2025-05-08 08:16 | Outpatient (BNVA) | payer MEDICARE, SELFPAY | PROVIDERS: PCP Family Medicine; Visit Provider Nurse Practitioner Family | DX: M79.18 Myalgia, other site (principal); M79.604 Pain in right leg; M79.605 Pain in left leg; M47.816 Spondylosis without myelopathy or radiculopathy, lumbar region; Z71.89 Other specified counseling; M25.552 Pain in left hip | CPT/HCPCS: 20553; 99214; J1010; J3490 ==

== ENCOUNTER → 2025-05-27 14:06 | Outpatient (BNVA) | payer MEDICARE, SELFPAY | PROVIDERS: PCP Family Medicine; Visit Provider Anesthesiology Pain Medicine | DX: M16.12 Unilateral primary osteoarthritis, left hip (principal); E11.9 Type 2 diabetes mellitus without complications | CPT/HCPCS: 20610; 36416; 77002; 82962; J1010; J3490; J9999 ==

== ENCOUNTER → 2025-06-10 10:20 | Outpatient (BNVA) | payer MEDICARE, SELFPAY | PROVIDERS: PCP Family Medicine; Visit Provider Nurse Practitioner Family | DX: M47.816 Spondylosis without myelopathy or radiculopathy, lumbar region (principal); M79.604 Pain in right leg; M79.605 Pain in left leg; M25.559 Pain in unspecified hip | CPT/HCPCS: 99214 ==